=== PATIENT | male | born 1980 | race Caucasian/White ===

== ENCOUNTER 2016-07-20 10:20 | Emergency (ER) | payer OTHER ==
[~2016-07-20] VITALS: Ht 175.2 cm; Wt 117.9 kg
[2016-07-20] MEDS ORDERED: AUGMENTIN 500 M1 TAB PO (10:41)
[2016-07-20] MEDS ORDERED: ZOFRAN4 MG PO (10:41)
== END 2016-07-20 12:28 | disposition home or self-care (01) ==
LOC: ED 10:20
DX: S61.250A Open bite of right index finger without damage to nail, initial encounter (principal); R03.0 Elevated blood-pressure reading, without diagnosis of hypertension; Z90.49 Acquired absence of other specified parts of digestive tract; W55.01XA Bitten by cat, initial encounter; Y93.89 Activity, other specified; Y92.89 Other specified places as the place of occurrence of the external cause; Y99.9 Unspecified external cause status

== ENCOUNTER 2016-07-23 16:18 | Emergency (ER) | payer OTHER ==
[~2016-07-23] VITALS: Ht 175.2 cm; Wt 120.2 kg
[~2016-07-23 16:18] MED LIST: AUGMENTIN 500 M1 TAB PO; ZOFRAN4 MG PO
== END 2016-07-23 16:41 | disposition home or self-care (01) ==
LOC: ED 16:18
DX: Z29.14 Encounter for prophylactic rabies immune globulin (principal); Z90.49 Acquired absence of other specified parts of digestive tract

== ENCOUNTER 2016-07-27 12:19 | Emergency (ER) | payer OTHER ==
[~2016-07-27] VITALS: Wt 117.9 kg
== END 2016-07-27 13:49 | disposition home or self-care (01) ==
LOC: ED 12:19
DX: Z29.14 Encounter for prophylactic rabies immune globulin (principal); R03.0 Elevated blood-pressure reading, without diagnosis of hypertension

== ENCOUNTER 2016-08-03 21:02 | Emergency (ER) | payer OTHER ==
[~2016-08-03] VITALS: Ht 175.2 cm; Wt 117.9 kg
== END 2016-08-03 21:19 | disposition home or self-care (01) ==
LOC: ED 21:02
DX: Z29.12 Encounter for prophylactic antivenin (principal); Z90.49 Acquired absence of other specified parts of digestive tract

== ENCOUNTER 2020-05-09 22:25 | Emergency (ER) | payer OTHER ==
[~2020-05-09] VITALS: Ht 175.2 cm; Wt 122.5 kg
[2020-05-09 23:18] LABS: BILIRUBIN Negative (Negative); BLOOD 3+ (Negative); CLARITY Cloudy (Clear); GLUCOSE Negative (Negative); KETONE Trace (Negative); LEUKO ESTERASE Trace (Negative); NITRITE Negative (Negative); PH 6.5 (4.5-8.0); SPECIFIC GRAVITY >= 1.030 (1.001-1.030)
[2020-05-09 23:19] LABS: COLOR Dark Yellow (Yellow)
[2020-05-09 23:29] LABS: BACTERIA 1+; RBC 51-100 rbc/hpf (0-2)
[2020-05-09 23:43] LABS: BASO % 0.3 % (0.0-1.0); EOS # 0.3 10*3/uL (0.0-0.4); HEMATOCRIT 42.4 % (42.0-52.0); LYMPH # 2.5 10*3/uL (1.3-4.4); LYMPH % 20.1 % (27.0-41.0); MEAN CELL VOLUME 90.4 fl (80.0-94.0); MEAN CORPUSCULAR HGB 30.5 pg (27.0-31.0); MEAN CORPUSCULAR HGB CONC 33.7 g/dl (33.0-37.0); MEAN PLATELET VOLUME 11.5 fl (9.6-12.3); MONO % 7.5 % (3.0-9.0); NEUT # 8.8 10*3/uL (2.3-7.9); NEUT % 69.7 % (47.0-73.0); PLATELET COUNT AUTOMATED 269 10*3/uL (130-400); RED BLOOD COUNT 4.69 10*6/uL (4.50-5.90); WHITE BLOOD COUNT 12.6 10*3/uL (4.8-10.8)
[2020-05-09 23:58] LABS: ALBUMIN 3.4 gm/dl (3.1-4.5); ALKALINE PHOSPHATASE 139 U/L (45-117); BUN 16 mg/dl (7-24); CHLORIDE 107 mmol/L (98-107); CREATININE 1.01 mg/dL (0.70-1.30); POTASSIUM 3.5 mmol/L (3.5-5.1); SGOT/AST 16 IU/L (3-35); SGPT/ALT 35 U/L (12-78); SODIUM 142 mmol/L (136-145); TOTAL PROTEIN 7.8 gm/dL (6.4-8.2)
[2020-05-10] MEDS ORDERED: CEPHALEXIN500 M1 PO (02:37)
== END 2020-05-10 03:07 | disposition home or self-care (01) ==
LOC: ED 22:25
PROVIDERS: Physician Assistant
DX: N39.0 Urinary tract infection, site not specified (principal); N20.0 Calculus of kidney; K40.90 Unilateral inguinal hernia, without obstruction or gangrene, not specified as recurrent; Z90.49 Acquired absence of other specified parts of digestive tract

== ENCOUNTER → 2020-06-26 | Outpatient (CLI) | payer OTHER ==
[~2020-06-26] MED LIST changes: +CEPHALEXIN500 M1 PO
== END | disposition home or self-care (01) ==
LOC: US 14:00 → LAB 14:22
PROVIDERS: ATTEND Urology
DX: R31.9 Hematuria, unspecified (principal)

== ENCOUNTER 2022-08-09 18:02 | Emergency (ER) | payer OTHER ==
[~2022-08-09] VITALS: Ht 172.7 cm; Wt 122.5 kg
[2022-08-09] MEDS ORDERED: VIBRA-TAB100 MG PO (18:18)
== END 2022-08-09 18:34 | disposition home or self-care (01) ==
LOC: ED 18:02
DX: J20.9 Acute bronchitis, unspecified (principal); Z90.49 Acquired absence of other specified parts of digestive tract

== ENCOUNTER 2023-05-25 06:46 | Emergency (ER) | payer OTHER ==
[~2023-05-25] VITALS: Ht 170.1 cm; Wt 117.9 kg
[~2023-05-25 06:46] MED LIST changes: +VIBRA-TAB100 MG PO
[2023-05-25] MEDS ORDERED: MUCINEX D ER 61 EACH PO (07:56)
== END 2023-05-25 07:55 | disposition home or self-care (01) ==
LOC: ED 06:46
DX: J10.1 Influenza due to other identified influenza virus with other respiratory manifestations (principal); Z20.822 Contact with and (suspected) exposure to COVID-19; R11.0 Nausea; R19.7 Diarrhea, unspecified; Z90.49 Acquired absence of other specified parts of digestive tract

== ENCOUNTER 2025-03-01 19:13 | Emergency (ER) | payer OTHER ==
[~2025-03-01 19:13] MED LIST changes: +MUCINEX D ER 61 EACH PO
[2025-03-01] MEDS ORDERED: ANTIFUNGAL113 GM T (20:14)
[2025-03-01] MEDS ORDERED: CLOTRIMAZOLE 15 GM TUBE T ONE (20:15)
== END 2025-03-01 20:35 | disposition home or self-care (01) ==
LOC: ED 19:13
DX: N48.1 Balanitis (principal); E11.9 Type 2 diabetes mellitus without complications; G47.30 Sleep apnea, unspecified; Z90.49 Acquired absence of other specified parts of digestive tract; Z87.440 Personal history of urinary (tract) infections